=== PATIENT | female | born 1975 | race Caucasian/White ===

== ENCOUNTER → 2023-12-25 | Outpatient (CLI) | payer MEDICARE ==
[2023-12-25 13:36] VITALS: BP 148/80; PULSE 76; RESP 18; TEMP 97.9
--- NOTE | 2023-12-25 14:13 | P.HPOB ---
History of Present Illness H&P Date: 12/25/23 Chief Complaint: Patient is here for her routine gynecologic exam. This is a 48-year-old G0 with an LMP of 2020. The patient is here to establish with this office. It has been about 12 years since her last pelvic exam. Her menstrual periods naturally stopped in 2020. They previously were regular every month in the past. She does have mild hot flashes. She is otherwise without gynecologic complaints and denies any postmenopausal bleeding. Review of Systems The patient has lost 5 pounds over the last year. She has been more active since she moved to this area. She denies respiratory, cardiac, or G.I. problems. Past Medical History Past Medical History: Hyperlipidemia Additional Past Medical History / Comment(s): PERIPHERAL ARERTY DISEASE(legs), MIGRAINES, LUMBAR L5-S1 BACK PAIN. 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 History of Any Multi-Drug Resistant Organisms: None Reported Past Surgical History: Heart Catheterization With Stent, Tonsillectomy Additional Past Surgical History / Comment(s): Arterial stents in the legsx3, LEFT INDEX FINGER SURGERY, laparoscopy x 2. Past Anesthesia/Blood Transfusion Reactions: No Reported Reaction Date of Last Stent Placement:: T Past Psychological History: No Psychological Hx Reported Smoking Status: Never smoker Past Alcohol Use History: None Reported Past Drug Use History: None Reported Additional History: She has been since 1993, but is not sexually active since her back problems. She is disabled. - Past Family History Mother Family Medical History: Hyperlipidemia, Renal Disease Additional Family Medical History / Comment(s): Stage IV chronic kidney disease. Glaucoma. Father Family Medical History: No Reported History Additional Family Medical History / Comment(s): Paternal grandfather had bone cancer and a paternal aunt had leukemia. Medications and Allergies Home Medications Medication Instructions Recorded Confirmed Type Aspirin 81 mg PO DAILY 12/25/23 12/25/23 History Atorvastatin [Lipitor] 10 mg PO DAILY 12/25/23 12/25/23 History Cholecalciferol (Vitamin D3) 50 mcg PO DAILY 12/25/23 12/25/23 History [Vitamin D3 (50 Mcg = 2000 Iu)] Clopidogrel [Plavix] 75 mg PO DAILY 12/25/23 12/25/23 History Ibuprofen [Motrin] 800 mg PO DIRECTED PRN 12/25/23 12/25/23 History Morphine Sulfate ER [Ms Contin] 15 mg PO BID 12/25/23 12/25/23 History traMADol HCL 50 mg PO BID 12/25/23 12/25/23 History Allergies Allergy/AdvReac Type Severity Reaction Status Date / Time amoxicillin Allergy Anaphylaxis Unverified 12/25/23 13:27 azithromycin Allergy Anaphylaxis Unverified 12/25/23 13:27 cephalexin [From Keflex] Allergy Anaphylaxis Unverified 12/25/23 13:27 codeine Allergy Anaphylaxis Unverified 12/25/23 13:27 diphenhydramine Allergy Anaphylaxis Unverified 12/25/23 13:27 [From Triaminic Allergy] Penicillins Allergy Anaphylaxis Unverified 12/25/23 13:27 pseudoephedrine Allergy Anaphylaxis Unverified 12/25/23 13:27 [From Sudafed] Exam Vital Signs Temp Pulse Resp BP Pulse Ox 12/25/23 13:31 97.9 F 76 18 148/80 97 Intake and Output 12/24/23 12/25/23 12/25/23 22:59 06:59 14:59 Other: Weight 106.594 kg Height 5 feet 5 inches, weight 235 pounds, BMI 39.1. This is a well-developed well-nourished heavyset white female who is alert and oriented times 3 in no acute distress. HEENT: Within normal limits. NECK: Supple without mass or thyromegaly. CHEST AND LUNGS: Clear to auscultation. HEART: Regular rate and rhythm. BREASTS: Are without mass or discharge. AXILLARY EXAM: Negative for adenopathy. BACK: Negative for CVA tenderness. ABDOMEN: Soft, nontender, without palpable masses. PELVIC EXAM: Normal external genitalia minimal atrophy. Cervix and vagina appear normal with minimal atrophy. There is no unusual discharge. There is no evidence of prolapse. The uterus is midposition, nongravid size and nontender. There are no palpable adnexal masses or tenderness. RECTAL EXAM: Rectal exam was declined by the patient. EXTREMITIES: Nontender. IMPRESSION: 1. 48-year-old menopausal female with normal gynecologic exam. 2. Elevated blood pressure. PLAN: 1. Pap smear cotest was performed. 2. Self breast awareness was discussed with the patient. We have also discussed symptoms associated with inflammatory breast cancer. 3. Baseline screening mammogram was recommended and the order slip was given to the patient for this. 4. Osteoporosis prevention was discussed. I have stressed the importance of adequate calcium, vitamin D and regular exercise. Recommended amounts of calcium and vitamin D were also discussed. 5. We have discussed her elevated blood pressure. I have recommended that she check her own blood pressures since she does have a blood pressure cuff at home. She should follow-up with her PCP for blood pressure elevations. 6. She was advised to return in one year for her annual well woman exam.
== END ==
LOC: WWCWWP 13:08
PROVIDERS: ATTEND Obstetrics & Gynecology
DX: Z12.31 Encounter for screening mammogram for malignant neoplasm of breast (principal); Z01.419 Encounter for gynecological examination (general) (routine) without abnormal findings; Z29.9 Encounter for prophylactic measures, unspecified; E66.9 Obesity, unspecified; E78.5 Hyperlipidemia, unspecified; M51.27 Other intervertebral disc displacement, lumbosacral region; I73.9 Peripheral vascular disease, unspecified; G89.29 Other chronic pain; Z88.5 Allergy status to narcotic agent; Z88.0 Allergy status to penicillin; Z88.8 Allergy status to other drugs, medicaments and biological substances; Z88.1 Allergy status to other antibiotic agents; Z68.39 Body mass index [BMI] 39.0-39.9, adult